=== PATIENT | female | born 1950 | race African-American/Black ===

== ENCOUNTER 2018-01-21 10:21 | Outpatient (CLI) | payer MEDICARE | END 2018-01-21 10:22 | disposition home or self-care (01) | LOC: BICMAMMO 10:21 | PROVIDERS: ATTEND Family Medicine | DX: Z12.31 Encounter for screening mammogram for malignant neoplasm of breast (principal); M85.80 Other specified disorders of bone density and structure, unspecified site | CPT/HCPCS: 77063; 77067; 77080 ==

== ENCOUNTER 2018-04-03 12:11 | Emergency (ER) | payer MEDICARE | END 2018-04-03 13:50 | disposition home or self-care (01) | LOC: ERS 12:11 | DX: M25.561 Pain in right knee (principal); M25.562 Pain in left knee; E78.5 Hyperlipidemia, unspecified; I10 Essential (primary) hypertension; F32.9 Major depressive disorder, single episode, unspecified; F17.290 Nicotine dependence, other tobacco product, uncomplicated; Z79.899 Other long term (current) drug therapy | CPT/HCPCS: 99283 ==

== ENCOUNTER 2019-04-20 12:53 | Observation (INO) | payer MEDICARE ==
[2019-04-20 13:21] LABS: Hemoglobin 11.2 g/dL (12.0-16.0); Mean Corpuscular HGB CONC 32.5 g/dL (32.0-36.0); Mean Corpuscular Hemoglobin 29.9 pg (27.0-31.0); Platelet Count 284 thou/uL (130-400); RBC Distribution Width 12.4 % (11.5-14.5); Red Blood Cell (RBC) Count 3.73 mill/uL (4.20-5.40); White Blood Cell (WBC) Count 6.5 thou/uL (4.8-10.8)
[2019-04-20 13:41] LABS: Eosinophils 1 % (0-10); Lymphocytes 84 % (21-51); MDiff Complete? YES; Monocytes 2 % (0-10); Neutrophil 13 % (42-75); Platelet Morphology Comment Appears Adequate
[2019-04-20 13:47] LABS: ALT (SGPT) 29 U/L (8-55); AST (SGOT) 28 U/L (5-34); Albumin 4.3 g/dL (3.4-4.8); Alkaline Phosphatase 100 U/L (40-150); Anion Gap 12 mmol/L (10-20); BUN (Urea Nitrogen) 10 mg/dL (9.8-20.1); Bilirubin, Total 0.7 mg/dL (0.2-1.2); CK (CPK) 371 U/L (29-168); Calc. Creatinine Clearance 0 mL/min (70-130); Calcium 9.2 mg/dL (7.8-10.44); Carbon Dioxide 26 mmol/L (23-31); Chloride 104 mmol/L (98-107); Estimated GFR-MDRD 61; Globulin 2.4 g/dL (2.4-3.5); Glucose 93 mg/dL (80-115); Potassium 3.6 mmol/L (3.5-5.1); Protein, Total 6.7 g/dL (6.0-8.3); Sodium 138 mmol/L (136-145)
[2019-04-20] MEDS ORDERED: Nitroglycerin 2% Ointment 1 INCH/1 GM Packet ONE (14:58)
[2019-04-20] MEDS ORDERED: Aspirin Chewable 81 MG TAB ONE (14:58)
[2019-04-20] MEDS ORDERED: Nitroglycerin 0.4 MG TAB 1 EACH ONE (15:01)
--- NOTE | 2019-04-20 15:14 | RAD ---
CHEST 1 VIEW: Date: 04/20/19 HISTORY: Chest pain. COMPARISON: Radiograph dated 01/15/17. FINDINGS: Lungs are clear. No pneumothorax. No effusion. Mild dextroscoliosis upper thoracic spine. Cardiac silhouette and mediastinal contours are within normal limits. IMPRESSION: No acute intrathoracic abnormality. POS: CET
[2019-04-20 17:34] LABS: Troponin I Less than 0.010 ng/mL (< 0.028)
[2019-04-20] MEDS ORDERED: Ondansetron ODT 4 MG TAB PO PRN (18:02)
[2019-04-20] MEDS ORDERED: Senokot S 8.6-50 MG TAB PO PRN (18:02)
[2019-04-20] MEDS ORDERED: Ondansetron PF 4 MG/2 ML Vial IVP PRN (18:02)
[2019-04-20] MEDS ORDERED: Acetaminophen 325 MG TAB PO PRN (18:02)
[2019-04-20] MEDS ORDERED: Acetaminophen 650 MG Suppository PR PRN (18:02)
[2019-04-20] MEDS ORDERED: Acetaminophen/Codeine 30-300mg Tablet PO PRN (18:10)
[2019-04-20] MEDS ORDERED: Nitroglycerin 0.4 MG TAB (25 Tab Bottle) SL PRN (18:12)
[2019-04-20 18:53] VITALS: BMI 34.9
--- NOTE | 2019-04-20 19:50 | HP ---
PRIMARY CARE PHYSICIAN: Dr. Mikael Patel. CHIEF COMPLAINT: Chest pain. HISTORY OF PRESENT ILLNESS: Ms. Bruce is a pleasant 69-year-old woman, who looks younger than her stated age, presenting with complaints of severe chest pain that came on suddenly while parked at a gas station. The patient states the pain was 10/10 in severity, substernal, and radiating up both sides of her neck and to her left shoulder. The patient states the pain was constant for approximately 1 hour, and once given a nitroglycerin on arrival, the pain subsided to 2/10. 15 minutes later, she was given a second dose of Nitrostat and her pain fully subsided. She was also given 325 mg of aspirin. The patient reports having similar pain at least once a week for several weeks. She states her primary care physician who saw her recently advised her to go to the emergency department if this type of pain occurred again. For that reason, the patient decided to seek medical attention. She states the pain tends to happen at any time of day and does not seem to be associated with activity as it can occur while at rest or during activity. She denies any associated nausea or vomiting. No associated shortness of breath. Has not had any recent fevers. No cough. Denies any lightheadedness or dizziness. The patient reports having a catheterization more than 10 years ago. She also follows with Dr. Gambino and states she has had cardiac workup including a stress test and possibly an echo less than one year ago. She does not recall the exact date. REVIEW OF SYSTEMS: Apart from what is mentioned above in HPI, the patient denies having any changes with her appetite. No nausea or vomiting. No abdominal pain or cramping. Reports having regular bowel movements. Denies having any urinary symptoms. No trauma to her chest. No lower leg swelling or edema. No recent long car rides or flights. PAST MEDICAL HISTORY: 1. Hypertension. 2. Hyperlipidemia. 3. History of slipped disk. 4. Depression. 5. Anxiety. PAST SURGICAL HISTORY: Previous heart catheterization greater than 10 years ago. SOCIAL HISTORY: Previously smoked cigarettes. Denies any current tobacco use, alcohol consumption, or illicit drug use. ALLERGIES: PROZAC. CURRENT MEDICATIONS: 1. Amlodipine. 2. Atorvastatin. 3. Lexapro. 4. Baclofen. 5. Nortriptyline. 6. Tylenol No. 3. 7. Nitrostat. PHYSICAL EXAMINATION: GENERAL: The patient appears well developed, well nourished, and is in no acute distress. Currently pain is 0/10. VITAL SIGNS: Blood pressure 128/73, pulse 79, respirations 13, O2 sat 99% on room air. HEENT: Normocephalic and atraumatic. Pupils are equal, round, reactive to light. Sclerae without icterus. Oropharynx is clear. NECK: Supple. LUNGS: Clear to auscultation bilaterally without any wheezes, rales, or rhonchi. CARDIAC: Regular rate and rhythm. No chest wall tenderness. ABDOMEN: Soft, nontender, nondistended. Normoactive bowel sounds present. No renal angle tenderness. No guarding or rigidity. EXTREMITIES: No lower leg swelling or edema. NEUROLOGIC: Alert and oriented x3. SKIN: Without rash or jaundice. LABORATORY DATA: White blood count 6.5, hemoglobin 11.2, hematocrit 34.3, platelets 284. Sodium 138, potassium 3.6, BUN 10, creatinine 1.08, GFR 61, glucose 93. LFTs are normal. CK 371. Alkaline phosphatase 100. Troponin negative x1. BNP less than 10. Albumin 4.3. Chest x-ray, no acute intrathoracic abnormality. EKG showed no ST changes or T-wave abnormalities. IMPRESSION AND PLAN: Ms. Bruce is a very pleasant 69-year-old woman with a past medical history of hypertension and hyperlipidemia, who has been referred for management of the followin. Acute coronary syndrome rule out. The patient presents with severe 10/10 chest pain, lasting approximately 1 hour and responsive to Nitrostat. Reports having frequent chest pain for the last several weeks, occurring at least one time per week. Last heart catheterization was greater than 10 years ago, but states she had recent cardiac investigations including a stress test and echo less than one year ago. We will obtain these records from Dr. Gambino' office and if she has had these investigations less than a year ago, unlikely to have them repeated again, however, will need to be seen by Cardiology for concerns regarding unstable angina. We will keep her n.p.o. at midnight. At present, the patient remains chest pain free. We will continue to trend troponins. 2. Hypertension. We will resume home medications once verified. Continue to monitor blood pressure. 3. Hyperlipidemia. We will resume statin once verified. We will check lipid panel with morning labs. 4. Gastrointestinal prophylaxis. 5. Deep venous thrombosis prophylaxis with mechanical SCDs. The patient is ambulatory. 6. Code status, full. Her surrogate decision maker is Cherri Bruce, her son. The patient's case discussed with attending, who agrees with plan of care as described above. Job ID: [id number] MTDD
[2019-04-20 20:30] LABS: Troponin I Less than 0.010 ng/mL (< 0.028)
[2019-04-20] MEDS: Famotidine/PF 20 mg/2ml Vial SLOW IVP SCH (20:44)
[2019-04-20] MEDS ORDERED: Amlodipine 10 MG TAB PO SCH (21:00)
[2019-04-20] MEDS ORDERED: Atorvastatin Calcium 40 MG TAB PO SCH (21:00)
[2019-04-20] MEDS ORDERED: Escitalopram Oxalate 20 mg Tablet PO SCH (21:00)
[2019-04-20] MEDS ORDERED: Diazepam 2 MG TAB PO PRN (21:48)
[2019-04-21 04:54] LABS: Anion Gap 12 mmol/L (10-20); BUN (Urea Nitrogen) 9 mg/dL (9.8-20.1); Calc. Creatinine Clearance 75 mL/min (70-130); Calcium 9.4 mg/dL (7.8-10.44); Carbon Dioxide 25 mmol/L (23-31); Cardiac Risk 3.8 (Less than 4.5); Chloride 105 mmol/L (98-107); Cholesterol 157 mg/dl (< 200 Desired); Estimated GFR-MDRD 65; Glucose 108 mg/dL (80-115); HDL Cholesterol 41 mg/dL (>60 Neg Risk); LDL Cholesterol, Calculated 90 mg/dL; Potassium 3.5 mmol/L (3.5-5.1); Sodium 138 mmol/L (136-145); Triglycerides 129 mg/dL (Less than 150)
[2019-04-21 05:09] LABS: Eosinophils 3 % (0-10); Hemoglobin 10.9 g/dL (12.0-16.0); Lymphocytes 57 % (21-51); MDiff Complete? YES; Mean Corpuscular Hemoglobin 30.3 pg (27.0-31.0); Mean Platelet Volume 7.1 fL (7.4-10.4); Monocytes 3 % (0-10); Neutrophil 36 % (42-75); Platelet Count 262 thou/uL (130-400); RBC Distribution Width 12.3 % (11.5-14.5); Reactive Lymphocytes 1 % (0-10); Red Blood Cell (RBC) Count 3.58 mill/uL (4.20-5.40); White Blood Cell (WBC) Count 5.8 thou/uL (4.8-10.8)
[2019-04-21 08:27] VITALS: TEMP 98.6
[2019-04-21] MEDS ORDERED: Nortriptyline HCl 25 MG CAP PO SCH (09:00)
[2019-04-21] MEDS ORDERED: Escitalopram Oxalate 20 mg Tablet PO SCH (09:00)
[2019-04-21] MEDS ORDERED: busPIRone HCl 10 MG TAB PO SCH (09:00)
[2019-04-21] MEDS ORDERED: Amlodipine 10 MG TAB PO SCH (09:00)
[2019-04-21] MEDS ORDERED: Aspirin 325 mg Enteric Coated Tablet PO SCH (09:00)
[2019-04-21] MEDS: Famotidine/PF 20 mg/2ml Vial SLOW IVP SCH (09:04)
[2019-04-21] MEDS ORDERED: Lidocaine 1% (PF) 30 ML VIAL ONE (10:51)
[2019-04-21] MEDS ORDERED: Heparin 10,000 UNITS/1 ML VIAL ONE (11:21)
[2019-04-21] MEDS ORDERED: Verapamil 5 MG/2 ML VIAL ONE (11:21)
[2019-04-21] MEDS ORDERED: Nitroglycerin 100MG/250ML BOT 250 ML ONE (11:21)
[2019-04-21] MEDS ORDERED: Iopamidol 370 76% 100 ML VIAL ONE (11:49)
[2019-04-21] MEDS ORDERED: Nitroglycerin 0.4 MG TAB (25 Tab Bottle) SL PRN (12:07)
[2019-04-21] MEDS ORDERED: Sodium Chloride 0.9% 200 ML IV PRN (12:07)
[2019-04-21] MEDS ORDERED: Acetaminophen/Codeine 30-300mg Tablet PO PRN ×2 (12:07)
--- NOTE | 2019-04-21 12:12 | CON ---
DATE OF CONSULTATION: INDICATION FOR CONSULTATION: A 69-year-old female with chest pain, history of coronary artery disease, hypertension, dyslipidemia, and tobacco abuse. HISTORY OF PRESENT ILLNESS: This is a very pleasant 69-year-old female, who underwent cardiac catheterization in 2006, was found to have mild coronary artery disease with plaque formation in the right coronary artery and in the left circumflex, but no flow-limiting disease was noted. She had a negative stress test last year. She presented again yesterday to the hospital complaining of chest pain, which has actually been ongoing problem for her for several years, but she said recently it has gotten worse. She describes it being chest pressure radiating to the left shoulder and also into the neck area, and not necessarily associated with activity, but not necessarily relieved either by antacids and she was given two nitroglycerin in the emergency room and eventually the pain resolved. Given her risk factors and history of coronary artery disease on presentation, it will most likely be advantageous to proceed with a cardiac catheterization as a definitive tool to evaluate her coronary artery status. I have explained to her the procedure and the risk and we will plan for cardiac catheterization this morning. The risks include bleeding, infection, myocardial infarction, CVA, renal insufficiency, allergic contrast reaction, and the possibility of and we will plan for catheterization as soon as she can be taken to the cardiac laboratory director. Her cardiac enzymes have remained negative. EKG is unremarkable. PAST MEDICAL HISTORY: Please refer to the notes dictated by my nurse practitioner. SOCIAL HISTORY: Please refer to the notes dictated by my nurse practitioner. REVIEW OF SYSTEMS: Please refer to the notes dictated by my nurse practitioner. ALLERGIES: PLEASE REFER TO THE NOTES DICTATED BY MY NURSE PRACTITIONER. MEDICATIONS: Please refer to the notes dictated by my nurse practitioner. PHYSICAL EXAMINATION: GENERAL: Reveals a well-developed, well-nourished, middle-aged female, who is in no acute distress at this time. VITAL SIGNS: Blood pressure is 131/86, heart rate is 88 and regular, and she is afebrile. HEENT: Unremarkable. CHEST: Clear to auscultation. CARDIOVASCULAR: Reveals a regular rate and rhythm. EXTREMITIES: No clubbing, cyanosis, or edema. ABDOMEN: Unremarkable. Pulses are present. NEUROLOGIC: The patient is fully intact with normal strength and normal tone. LABORATORY DATA: Please refer to the notes already dictated. There is no significant abnormalities, but she is somewhat anemic with a hemoglobin of 10.9. IMPRESSION: 1. Coronary artery disease with possible progression. She will be advised to undergo cardiac catheterization. 2. Chest pain, which could either be cardiac or GI in nature. If the cardiac evaluation is unremarkable, would suggest she continue with gastroesophageal evaluation or either continue her H2 blockers. 3. Anemia of uncertain etiology, need to be evaluated. This maybe associated with some of her chest pain. She is having gastric blood loss from ulcerations. Her creatinine is normal at 1.02 and her LDL level is 90. 4. History of tobacco abuse. She will be strongly advised to stop. 5. History of hypertension, this is under good control at this time. 6. Dyslipidemia, appears to be well controlled also at this time with medical management. Job ID: [id number]
[2019-04-21 12:25] VITALS: BP 130/62
--- NOTE | 2019-04-21 14:48 | CON ---
DATE OF CONSULTATION: PRIMARY CARE DOCTOR: Mikael Patel MD PRIMARY EMERGENCY VEHICLE TECHNICIAN: Connie Gambino MD REASON FOR CARDIOLOGY CONSULT: Frequent chest pain. HISTORY OF PRESENT ILLNESS: Ms. Bruce is a 69-year-old female with significant history of mild coronary artery disease with cath in 2006, hypertension, dyslipidemia, GERD, and depression. She has had heaviness like chest pain since 2006. She underwent a cardiac catheterization in 2006 with 25% to 50 % stenosis in left circumflex and mild plaque in the right coronary arteries with EF 60% to 65%. She has had similar chest pain since 2006. She had a stress test in 2007 with no reversible ischemia. She has had similar symptoms at least once a week with movement and resting. Yesterday morning, while she was sitting at gas station, she started having heaviness like pressure at the midsternal area for 1 hour. The pain radiated to the back and to bilateral side of the neck and to the left upper arm. She described the pain as 10/10 on the pain scale. She drove herself to the emergency department. After she received first nitro, the patient's pain decreased to the 5/10. After she received the second nitro, her pain went down to 2/10 on the pain scale. At this moment, she denies any chest pain, shortness of breath, dizziness, lightheadedness, or any other cardiac complaints. During the episode, she denied any other cardiac complaints either. She exercises at least 3 times a week with stational bicycling for 30 minutes without any cardiac complaints. She checked her blood pressure at home , her blood pressure has been 110s to 120 over 70s at home. She started smoking every day for 2 to 3 cigarettes. The patient's cardiac catheterization in 2006 shows 25% to 50% stenosis in left circumflex and mild plaque in RCA with EF 60% to 65%. Lexiscan stress test in 2017 shows no reversible ischemia with EF 64%. She had echocardiogram done in 2013 with EF of 60% to 65%, trace mitral valve regurgitation, mild aortic valve sclerosis , and trace tricuspid regurgitation. She had a carotid artery Doppler done in March 2018 with no significant stenosis of bilateral ICA. PAST MEDICAL HISTORY: Hypertension, dyslipidemia, mild CAD in 2006, depression , and GERD. PAST SURGICAL HISTORY: Right arm fracture and cardiac catheterization in 2006. FAMILY HISTORY: There are significant family history of diabetes, hypertension , CVA in her maternal side, but there are no significant coronary artery disease in paternal and maternal side. SOCIAL HISTORY: She is a . She had 3 children. They live well. She smoke electronic smoke with nicotine every day. She has ex-EtOH abuse. She quit 1980s. She denies illicit drug abuse. She drinks one big cup of fountain soda every day. ALLERGIES: SHE IS ALLERGIC TO PROZAC, WHICH MAKE HER REALLY DROWSY. MEDICATIONS: The patient's home medications are; 1. Baclofen 10 mg 3 times a day. 2. Norvasc 10 mg once a day. 3. Lexapro 20 mg at bedtime. 4. Lipitor 40 mg once a day. 5. Tylenol with Codeine No. 3 one tablet every 6 hours as needed. 6. Protonix 40 mg once a day as needed. 7. Buspirone 10 mg twice a day. 8. Pamelor 25 mg once a day. 9. Diazepam 2 mg twice a day as needed. REVIEW OF SYSTEMS: Twelve-point review of systems negative unless otherwise mentioned in the HPI. PHYSICAL EXAMINATION: VITAL SIGNS: Blood pressure 128/62, temperature 97.8, pulse 82 and sinus rhythm , respiratory rate is 14, and O2 saturation 97% with room air. GENERAL: The patient is alert and oriented x4, not in acute distress. HEENT: Head; normocephalic, atraumatic. Eyes; extraocular muscle movement intact. ENT and mouth; oral and nasal mucosa moist without lesion. NECK: Supple. Normal range of motion. No JVD. RESPIRATORY: Clear to auscultate bilaterally. No significant wheezing, rales, or rhonchi noted. CARDIOVASCULAR: Regular rate and rhythm. Normal S1 and S2. There is no S3 or S4. No significant murmur, hives, or thrill noted. 2+ pulses in bilateral upper and lower extremities. No edema in the lower extremities. Carotid pulses are present, but mild bruits noted on the right carotid arteries. ABDOMEN: Soft, nontender. No mass to palpitate. Bowel sounds are present. SKIN: Warm and dry. No lesion, rash, or erythema noticed. MUSCULOSKELETAL: The patient able to move all extremities without any difficulty. The patient denied claudication. NEUROLOGIC: The patient is alert and oriented x4. Nonfocal. PSYCHIATRIC: The patient's mood is appropriate. LABORATORY DATA: WBC 5.8, hemoglobin 10.9, hematocrit 32.9, and platelets 262. Sodium 138, potassium 3.5, BUN 9, creatinine 1.02, calcium 9.4, and magnesium 2.0. AST 28, ALT 29. Creatine kinase 371. Troponin negative x3. BNP is less than 10. TSH is 2.7308. Total cholesterol is 157, triglyceride is 129, HDL 41, and LDL 90. IMAGING DATA: Chest x-ray shows no acute intrathoracic abnormalities. 12-lead EKG at the ER shows sinus rhythm with heart rate [address]-segment change or T-wave inversion. ASSESSMENT AND PLAN: 1. Chest pain. The patient's troponin is negative x3 and the patient's stress test in May 2018 showed no reversible ischemia. However, the patient's cardiac catheterization in 2006 shows 25% to 50% stenosis in left circumflex. The patient had a history of hyperlipidemia, and current smoker. I would like to discuss with Dr. Gambino with the patient's further evaluation and treatment However, most likely the patient is going to undergo cardiac cath today. The patient has been n.p.o. at this moment. 2. Hypertension. The patient's blood pressure is stable with current medication. We would like to continue to monitor. 3. Hyperlipidemia. She is on atorvastatin 20 mg once a day. 4. Depression. Her mental status is stable at this moment with current medication, which is managed by the primary care doctor. 5. Gastroesophageal reflux disease. The patient on the Protonix 40 mg once a day. 6. Current smoker. Smoking cessation education was given to the patient. The patient like to quit smoking. She would like to try nicotine patch or Chantix order. Thank you very much for Cardiology Service to participate in the care of this patient. We will follow along the patient's care team and make further recommendations as appropriate. Job ID: [id number] MTDD
== END 2019-04-21 15:31 | disposition home or self-care (01) ==
LOC: ERS 12:53 → 2SW 16:45
PROVIDERS: ADMIT Internal Medicine; ATTEND Internal Medicine
PROC: 4A023N7 Measurement of Cardiac Sampling and Pressure, Left Heart, Percutaneous Approach (ICD-10-PCS; principal; 2019-04-20)
PROC: B2101ZZ Fluoroscopy of Single Coronary Artery using Low Osmolar Contrast (ICD-10-PCS; 2019-04-20)
DX: R07.2 Precordial pain (principal); I10 Essential (primary) hypertension; E78.5 Hyperlipidemia, unspecified; D64.9 Anemia, unspecified; K21.9 Gastro-esophageal reflux disease without esophagitis; F32.9 Major depressive disorder, single episode, unspecified; F41.9 Anxiety disorder, unspecified; F17.290 Nicotine dependence, other tobacco product, uncomplicated; Z88.8 Allergy status to other drugs, medicaments and biological substances; Z79.899 Other long term (current) drug therapy
CPT/HCPCS: 71045; 80048; 80053; 80061; 82550; 83735; 83880; 84443; 84484 ×2; 85025 ×2; 93005; 93458; 96374; 96376; 97139; 99285; C1769; G0378 ×3; 36415; J1644; J2001; Q9967; S0028

== ENCOUNTER 2019-10-16 12:36 | Outpatient (CLI) | payer MEDICARE ==
--- NOTE | 2019-10-16 13:24 | ULT ---
EXAM: Left lower extremity venous Doppler US HISTORY: left lower extremity pain FINDINGS: Grayscale, color-flow, Doppler evaluation, spectral analysis of the left lower extremity venous struc tures is performed with 2-D imaging. The left common femoral, superficial femoral, popliteal, posterior tibial, proximal greater saphenous and profunda femoral veins are imaged. There is normal luminal compressibility, flow, and augmentation the visualized deep venous structures of the left lower extremity. IMPRESSION: No evidence of a deep vein thrombosis in the left lower extremity.
== END 2019-10-16 12:37 | disposition home or self-care (01) ==
LOC: ULT 12:36
PROVIDERS: ATTEND Family Medicine
DX: M79.605 Pain in left leg (principal)

== ENCOUNTER 2020-09-14 08:19 | Outpatient (CLI) | payer MEDICARE ==
--- NOTE | 2020-09-14 09:13 | MMO ---
Bilateral MAMMO Bilat Screen [id number]. CLINICAL HISTORY: Patient is 70 years old and is seen for screening. The patient has no family history of breast cancer. The patient has no personal history of cancer. VIEWS: The views performed were: bilateral craniocaudal with tomosynthesis and bilateral mediolateral oblique with tomosynthesis. FILMS COMPARED: The present examination has been compared to prior imaging studies performed at [facility] on 01/21/2018, and at [facility] on 09/19/2010, 06/14/2014 and 08/08/2015. This study has been interpreted with the assistance of computer-aided detection. MAMMOGRAM FINDINGS: There are scattered fibroglandular densities. There are no suspicious masses, calcifications or areas of architectural distortion. Nodularity is stable. There are no suspicious masses, suspicious calcifications, or new areas of architectural distortion. IMPRESSION: THERE IS NO MAMMOGRAPHIC EVIDENCE OF MALIGNANCY. A ROUTINE FOLLOW-UP MAMMOGRAM IN 1 YEAR IS RECOMMENDED. THE RESULTS OF THIS EXAM WERE SENT TO THE PATIENT. ACR BI-RADS Category 2 - Benign finding MAMMOGRAPHY NOTE: 1. A negative mammogram report should not delay a biopsy if a dominant of clinically suspicious mass is present. 2. Approximately 10% to 15% of breast cancers are not detected by mammography. 3. Adenosis and dense breasts may obscure an underlying neoplasm. Reported by: ARTEMIO NOLASCO MD Electonically Signed: [id number]
--- NOTE | 2020-09-14 10:08 | BD ---
EXAM: DEXA bone density examination HISTORY: 70-year-old postmenopausal female for screening COMPARISON: 02/09/2016 FINDINGS: L1--bone mineral density 0.872 g/sq cm; T score -1.1 L2--bone mineral density 1.056 g/sq cm; T score 0.3 L3--bone mineral density 1.112 g/sq cm; T score 0.3 L4--bone mineral density 1.307 g/sq cm; T score 2 Total L1-L4--bone mineral density 1.094 g/sq cm; T score 0.4 Left femoral neck--bone mineral density0.703; T score -1.3 Total proximal left femur--bone mineral density 0.876; T score -0.5 IMPRESSION: Osteopenia. This patient has a 10 year WHO fracture risk of a major osteoporotic fracture of 4.1% and of a hip fracture of 0.9%.
== END 2020-09-14 08:20 | disposition home or self-care (01) ==
LOC: BICMAMMO 08:19
PROVIDERS: ATTEND Family Medicine
DX: Z12.31 Encounter for screening mammogram for malignant neoplasm of breast (principal); Z13.820 Encounter for screening for osteoporosis; M85.89 Other specified disorders of bone density and structure, multiple sites; Z78.0 Asymptomatic menopausal state
CPT/HCPCS: 77063; 77067; 77080

== ENCOUNTER 2020-10-02 14:47 | Emergency (ER) | payer MEDICARE, OTHER ==
[2020-10-02] MEDS ORDERED: Ketorolac Tromethamine 30 MG/ML VIAL ONE (15:54)
[2020-10-02 16:08] LABS: #Basophils 0.1 thou/uL (0.0-0.2); #Eosinphils 0.1 thou/uL (0.0-0.7); #Lymphocytes 2.9 thou/uL (1.20-3.40); #Monocytes 0.5 thou/uL (0.11-0.59); #Neutrophils 2.5 thou/uL (1.40-6.50); %Basophils 1.4 % (0.0-1.0); %Eosinophils 0.9 % (0.0-10.0); %Lymphocytes 47.7 % (21.0-51.0); %Monocytes 8.3 % (0.0-10.0); %Neutrophils 41.7 % (42.0-75.0); Hemoglobin 11.3 g/dL (12.0-16.0); Mean Corpuscular HGB CONC 34.1 g/dL (32.0-36.0); Mean Corpuscular Hemoglobin 31.7 pg (27.0-31.0); Mean Corpuscular Volume 92.9 fL (78.0-98.0); Mean Platelet Volume 7.5 fL (7.4-10.4); Platelet Count 300 thou/uL (130-400); RBC Distribution Width 12.8 % (11.5-14.5); Red Blood Cell (RBC) Count 3.58 mill/uL (4.20-5.40)
[2020-10-02 16:21] LABS: ALT (SGPT) 17 U/L (8-55); AST (SGOT) 16 U/L (5-34); Albumin 3.9 g/dL (3.4-4.8); Alkaline Phosphatase 92 U/L (40-110); Anion Gap 15 mmol/L (10-20); BUN (Urea Nitrogen) 8 mg/dL (9.8-20.1); Bilirubin, Total 0.5 mg/dL (0.2-1.2); Calc. Creatinine Clearance 0 mL/min (70-130); Calcium 8.8 mg/dL (7.8-10.44); Carbon Dioxide 23 mmol/L (23-31); Chloride 108 mmol/L (98-107); Globulin 2.8 g/dL (2.4-3.5); Glucose 132 mg/dL (83-110); Lipase 42 U/L (8-78); Potassium 3.4 mmol/L (3.5-5.1); Protein, Total 6.7 g/dL (6.0-8.3); Sodium 143 mmol/L (136-145)
--- NOTE | 2020-10-02 16:53 | RAD ---
Cervical spine 3 views HISTORY: Neck injury. FINDINGS: Vertebral body heights are maintained. Alignment within normal limits. Bulky osteophytosis is present throughout the vertebral bodies and facets. Cervicothoracic junction i s intact. No fracture or dislocation. IMPRESSION : Prominent osseous degenerative changes. No acute osseous abnormalities are demonstrated.
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
== END 2020-10-02 17:15 | disposition home or self-care (01) ==
LOC: ERS 14:47
DX: M54.2 Cervicalgia (principal); E78.5 Hyperlipidemia, unspecified; E78.00 Pure hypercholesterolemia, unspecified; I10 Essential (primary) hypertension; F17.290 Nicotine dependence, other tobacco product, uncomplicated; Z79.899 Other long term (current) drug therapy; V43.52XA Car driver injured in collision with other type car in traffic accident, initial encounter
CPT/HCPCS: 36415; 71045; 72040; 80053; 83690; 85025; 96374; J1885

== ENCOUNTER 2021-08-02 13:10 | Outpatient (CLI) | payer MEDICARE | END 2021-08-02 13:11 | disposition home or self-care (01) | LOC: BICCT 13:10 | PROVIDERS: ATTEND Neurological Surgery | DX: M48.062 Spinal stenosis, lumbar region with neurogenic claudication (principal); M47.816 Spondylosis without myelopathy or radiculopathy, lumbar region | CPT/HCPCS: 72131 ==

== ENCOUNTER 2021-08-28 15:53 | Outpatient (CLI) | payer MEDICARE ==
[2021-08-28 17:27] LABS: Anion Gap 14 mmol/L (10-20); BUN (Urea Nitrogen) 8 mg/dL (9.8-20.1); Calc. Creatinine Clearance 0 mL/min (70-130); Calcium 9.3 mg/dL (7.8-10.44); Carbon Dioxide 24 mmol/L (23-31); Chloride 108 mmol/L (98-107); Glucose 115 mg/dL (83-110); Potassium 3.8 mmol/L (3.5-5.1); Sodium 142 mmol/L (136-145)
[2021-08-28 17:39] LABS: Hemoglobin 11.3 g/dL (12.0-15.5); Mean Corpuscular HGB CONC 32.8 g/dL (32.0-36.0); Mean Corpuscular Hemoglobin 30.3 pg (27.0-33.0); Mean Corpuscular Volume 92.2 fl (81.6-98.3); Mean Platelet Volume 9.8 fl (7.4-10.4); Platelet Count 310 10x3/uL (150-450); RBC Distribution Width 13.6 % (11.5-14.5); Red Blood Cell (RBC) Count 3.73 10x6/uL (3.90-5.03); White Blood Cell (WBC) Count 6.8 10x3/uL (3.5-10.5)
[2021-08-29 09:14] LABS: SARS-CoV-2 PCR by NAA Not Detected (NotDetected)
== END 2021-08-28 15:54 | disposition home or self-care (01) ==
LOC: LABBT 15:53
PROVIDERS: ATTEND Neurological Surgery
DX: Z01.818 Encounter for other preprocedural examination (principal); M48.061 Spinal stenosis, lumbar region without neurogenic claudication; Z20.822 Contact with and (suspected) exposure to COVID-19
CPT/HCPCS: 80048; 85027; U0003; U0005; 93005; 93010

== ENCOUNTER 2021-08-30 06:32 | Day surgery (SDC) | payer MEDICARE ==
[2021-08-28 13:08] VITALS: BMI 34.3
[2021-08-30] MEDS ORDERED: EPINEPHrine 1 MG/ML AMP ONE (06:45)
[2021-08-30] MEDS ORDERED: Thrombin 5000 UNITS/5 ML VIAL ONE (06:45)
[2021-08-30] MEDS ORDERED: Bupivacaine PF 0.5% 30 ML VIAL ONE (06:45)
[2021-08-30] MEDS ORDERED: Fentanyl 100 MCG/2 ML VIAL ONE ×3 (07:18→10:03)
[2021-08-30] MEDS ORDERED: Dexamethasone 20 MG/5 ML VIAL ONE (08:02)
[2021-08-30] MEDS ORDERED: Lidocaine 1% PF 5 ML VIAL ONE (08:02)
[2021-08-30] MEDS ORDERED: PROPOFOL 200 MG/20 ML VIAL ONE (08:02)
[2021-08-30] MEDS ORDERED: Glycopyrrolate 0.2 MG/ML 5 ML SYRINGE ONE (08:02)
[2021-08-30] MEDS ORDERED: Rocuronium Bromide 10 MG/ML (10ML VIAL) ONE (08:02)
[2021-08-30] MEDS ORDERED: Ondansetron PF 4 MG/2 ML Vial ONE (08:02)
[2021-08-30] MEDS ORDERED: SUGAMMADEX SODIUM 200 MG/2 ML VIAL ONE (09:13)
[2021-08-30] MEDS ORDERED: Albuterol Sulfate HFA (OR ONLY) ONE (09:25)
[2021-08-30] MEDS ORDERED: Albuterol Sulfate 1.25 MG/3 ML NEB ONE (09:35)
[2021-08-30] MEDS ORDERED: HYDROcodone/Acetaminophen 5/325 mg Tablet ONE (11:34)
[2021-08-30] MEDS ORDERED: tiZANidine HCl 4 MG TAB ONE (13:43)
== END 2021-08-30 15:35 | disposition home or self-care (01) ==
LOC: SDC 06:32
PROVIDERS: ATTEND Neurological Surgery
PROC: 01NB0ZZ Release Lumbar Nerve, Open Approach (ICD-10-PCS; principal; 2021-08-30)
DX: M48.062 Spinal stenosis, lumbar region with neurogenic claudication (principal); M51.16 Intervertebral disc disorders with radiculopathy, lumbar region; M47.26 Other spondylosis with radiculopathy, lumbar region; E78.5 Hyperlipidemia, unspecified; G89.29 Other chronic pain; M19.90 Unspecified osteoarthritis, unspecified site; I10 Essential (primary) hypertension; Z79.899 Other long term (current) drug therapy; Z88.8 Allergy status to other drugs, medicaments and biological substances
CPT/HCPCS: 76000; J0171; J0690; J1100; J2405; J2704; J3010; J7620; S0020

== ENCOUNTER 2021-09-15 14:04 | Outpatient (CLI) | payer MEDICARE | END 2021-09-15 14:05 | disposition home or self-care (01) | LOC: BICMAMMO 14:04 | PROVIDERS: ATTEND Family Medicine | DX: Z12.31 Encounter for screening mammogram for malignant neoplasm of breast (principal) | CPT/HCPCS: 77063; 77067 ==

== ENCOUNTER 2022-02-12 08:52 | Outpatient (CLI) | payer MEDICARE | END 2022-02-12 08:53 | disposition home or self-care (01) | LOC: RAD 08:52 | PROVIDERS: ATTEND Neurological Surgery | DX: M47.26 Other spondylosis with radiculopathy, lumbar region (principal); M47.818 Spondylosis without myelopathy or radiculopathy, sacral and sacrococcygeal region; M16.0 Bilateral primary osteoarthritis of hip; D64.9 Anemia, unspecified; I10 Essential (primary) hypertension; R73.09 Other abnormal glucose | CPT/HCPCS: 36415; 72120; 72170; 72220; 80053; 83036; 85025 ==

== ENCOUNTER 2023-05-06 09:26 | Outpatient (CLI) | payer MEDICARE | END 2023-05-06 09:27 | disposition home or self-care (01) | LOC: BICMAMMO 09:26 | PROVIDERS: ATTEND Family Medicine | DX: Z12.31 Encounter for screening mammogram for malignant neoplasm of breast (principal) | CPT/HCPCS: 77063; 77067 ==

== ENCOUNTER 2023-05-24 13:31 | Outpatient (CLI) | payer MEDICARE | END 2023-05-24 13:32 | disposition home or self-care (01) | LOC: CT 13:31 | PROVIDERS: ATTEND Family Medicine | DX: G43.111 Migraine with aura, intractable, with status migrainosus (principal); R47.01 Aphasia | CPT/HCPCS: 70450 ==

== ENCOUNTER 2023-11-04 07:08 | Outpatient (CLI) | payer MEDICARE ==
[2023-11-04] MEDS ORDERED: Iopamidol-370 76% 500 ML MDV (1 ML CHARGE) ONE (11:44)
== END 2023-11-04 07:09 | disposition home or self-care (01) ==
LOC: BICCT 07:08
PROVIDERS: ATTEND Family Medicine
DX: R10.30 Lower abdominal pain, unspecified (principal); K44.9 Diaphragmatic hernia without obstruction or gangrene; K42.9 Umbilical hernia without obstruction or gangrene; K57.30 Diverticulosis of large intestine without perforation or abscess without bleeding; I70.0 Atherosclerosis of aorta; M47.816 Spondylosis without myelopathy or radiculopathy, lumbar region
CPT/HCPCS: 74177; 82565; Q9967

== ENCOUNTER 2023-11-08 11:12 | Inpatient (IN) | payer MEDICARE ==
[2023-11-08] MEDS ORDERED: Iopamidol-370 76% 500 ML MDV (1 ML CHARGE) ONE (11:50)
[2023-11-08] MEDS ORDERED: Ondansetron PF 4 MG/2 ML Vial ONE ×2 (12:06→17:58)
[2023-11-08] MEDS ORDERED: Morphine 4 MG/ML VIAL ONE (12:06)
[2023-11-08 12:15] LABS: ALT (SGPT) 35 U/L (8-55); AST (SGOT) 25 U/L (5-34); Albumin 4.2 g/dL (3.4-4.8); Alkaline Phosphatase 78 U/L (40-110); Anion Gap 14 mmol/L (10-20); BUN (Urea Nitrogen) 10 mg/dL (9.8-20.1); Bilirubin, Total 1.1 mg/dL (0.2-1.2); Calc. Creatinine Clearance 0 mL/min (70-130); Calcium 9.4 mg/dL (7.8-10.44); Carbon Dioxide 26 mmol/L (23-31); Chloride 103 mmol/L (98-107); Estimated GFR 49; Globulin 3.1 g/dL (2.4-3.5); Glucose 122 mg/dL (83-110); Lipase 41 U/L (8-78); Potassium 4.1 mmol/L (3.5-5.1); Protein, Total 7.3 g/dL (5.8-8.1); Sodium 139 mmol/L (136-145)
[2023-11-08 12:35] LABS: #Monocytes 0.7 thou/uL (0.11-0.59); #Neutrophils 12.1 thou/uL (1.40-6.50); %Basophils 0.1 % (0.0-1.0); %Lymphocytes 10.4 % (21.0-51.0); %Monocytes 4.7 % (0.0-10.0); %Neutrophils 84.1 % (42.0-75.0); Hematocrit 34.6 % (36.0-47.0); Hemoglobin 11.4 g/dL (12.0-16.0); Mean Corpuscular HGB CONC 32.9 g/dL (32.0-36.0); Mean Corpuscular Hemoglobin 30.1 pg (27.0-31.0); Mean Corpuscular Volume 91.3 fl (78.0-98.0); Mean Platelet Volume 10.7 fL (7.4-10.4); Platelet Count 240 10x3/uL (130-400); RBC Distribution Width 13.7 % (11.5-14.5); Red Blood Cell (RBC) Count 3.79 mill/uL (4.20-5.40); White Blood Cell (WBC) Count 14.4 10x3/uL (4.8-10.8)
[2023-11-08 12:48] LABS: Magnesium 1.9 mg/dL (1.6-2.6)
[2023-11-08 13:01] LABS: Bacteria/HPF None Seen HPF (None Seen); Bilirubin 2+ (Negative); CAUTI Indications for Culture Pelvic or flank pain; Clarity Clear (Clear); Glucose, Urine (Dipstick) Normal (Negative); Ketone, Urine Negative (Negative); Leukocyte Negative Leu/uL (Negative); Nitrite Negative (Negative); Protein, Urine (Dipstick) 30 mg/dL (Neg-Trace); Specific Gravity, Urine 1.036 (1.002-1.036); Squamous Epithelial 0-3 HPF (0-3); WBC/HPF 0-3 HPF (0-3); pH, Urine 6.5 (5.0-9.0)
[2023-11-08 13:04] LABS: Troponin I Less than 0.010 ng/mL (< 0.028)
[2023-11-08 13:05] LABS: Blood, Urine Negative (Negative); Urine Culture Reflex No No
[2023-11-08] MEDS ORDERED: Sodium Chloride 0.9% 100 ML ONE ×2 (13:18→20:42)
[2023-11-08] MEDS ORDERED: Piperacillin/Tazobactam 4.5 GM VIAL ONE (13:18)
[2023-11-08] MEDS ORDERED: SUCCINYLCHOLINE/SOD CL,ISO/PF 200 MG/10 ML SYRINGE FS ONE (16:17)
[2023-11-08] MEDS ORDERED: PROPOFOL 20 ML ONE ×2 (16:17→19:12)
[2023-11-08] MEDS ORDERED: fentaNYL PF 100 MCG/2 ML SYRINGE ONE ×2 (16:17→20:02)
[2023-11-08] MEDS ORDERED: Lidocaine 2% PF 5 ML VIAL ONE ×2 (16:17→16:29)
[2023-11-08] MEDS ORDERED: Rocuronium Bromide 10 MG/ML (10ML VIAL) ONE (16:17)
[2023-11-08] MEDS ORDERED: EPINEPHrine 1 MG/ML VIAL ONE (16:28)
[2023-11-08] MEDS ORDERED: Bupivacaine PF 0.5% 30 ML VIAL ONE (16:29)
[2023-11-08] MEDS ORDERED: PHENYLEPHRINE-NS 100 MCG/ML 10 ML SYRINGE ONE (17:58)
[2023-11-08] MEDS ORDERED: Dexamethasone 4 mg/ml Vial ONE (17:58)
[2023-11-08] MEDS ORDERED: Ondansetron HCl/PF 4 MG/2 ML Vial IVP PRN (18:12)
[2023-11-08] MEDS ORDERED: Promethazine HCl 25 MG/ML VIAL IM PRN ×2 (18:12→21:21)
[2023-11-08] MEDS ORDERED: HYDROmorphone 2 MG/ML VIAL SLOW IVP PRN (18:12)
[2023-11-08] MEDS ORDERED: HYDROmorphone 0.5 MG/0.5 ML SYRINGE ONE (18:37)
[2023-11-08] MEDS ORDERED: Magnesium 5 GM/10 ML VIAL ONE (18:38)
[2023-11-08] MEDS ORDERED: Ketamine In 0.9 % NaCl 50 MG/5 ML SYRINGE ONE (18:38)
[2023-11-08] MEDS ORDERED: SUGAMMADEX SODIUM 200 MG/2 ML VIAL ONE (19:04)
[2023-11-08] MEDS ORDERED: ePHEDrine Sulfate 50 MG/10 ML VIAL ONE (19:38)
[2023-11-08] MEDS ORDERED: Ondansetron PF 4 MG/2 ML Vial IVP PRN (19:47)
[2023-11-08] MEDS ORDERED: Dextrose 5% in Water 1,000 ML IV PRN (19:47)
[2023-11-08] MEDS ORDERED: hydrALAZINE 20 MG/ML VIAL SLOW IVP PRN (19:47)
[2023-11-08] MEDS ORDERED: Morphine 4 MG/ML VIAL SLOW IVP PRN (19:47)
[2023-11-08] MEDS ORDERED: Morphine 2 MG/ML VIAL SLOW IVP PRN (19:47)
[2023-11-08] MEDS ORDERED: Diazepam 2 MG TAB PO PRN (19:54)
[2023-11-08] MEDS ORDERED: D5 1/2 NS w/20 mEq KCL 1,000 ML ONE (20:22)
[2023-11-08] MEDS: D5 1/2 NS w/20 mEq KCL 1,000 ML IV SCH (20:37)
[2023-11-08] MEDS ORDERED: Piperacillin/Tazobactam 3.375 GM VIAL ONE (20:39)
[2023-11-08] MEDS: Piperacillin/Tazobactam 3.375 GM in Sodium Chloride 0.9% 100 ML IVPB SCH (20:49)
[2023-11-08] MEDS ORDERED: Dexmedetomidine 200 MCG/2 ML VIAL ONE (20:53)
[2023-11-08] MEDS ORDERED: Sterile Water 30 ML ONE (20:53)
[2023-11-08] MEDS ORDERED: fentaNYL 50 mcg/mL 1 mL Vial ONE (21:02)
[2023-11-08] MEDS: Amlodipine 10 MG TAB PO SCH (21:09)
[2023-11-08] MEDS: busPIRone HCl 10 MG TAB PO SCH (21:09)
[2023-11-08] MEDS: Enoxaparin 40 MG (0.4 mL) SYRINGE SC SCH (21:09)
[2023-11-08] MEDS: Acetaminophen 500 MG TAB PO SCH (21:10)
[2023-11-08] MEDS ORDERED: Acetaminophen 500 MG TAB ONE (21:12)
[2023-11-08] MEDS ORDERED: diphenhydrAMINE 50 MG/ML VIAL IVP PRN (21:21)
[2023-11-08] MEDS ORDERED: FENTANYL 500 MCG/10 ML VIAL 2,000 MCG in Sodium Chloride 0.9% 60 ML IV PRN (21:21)
[2023-11-08] MEDS ORDERED: Naloxone HCl 0.4 mg/ml Vial IV PRN (21:21)
[2023-11-08] MEDS ORDERED: diphenhydrAMINE 50 MG/ML VIAL IM PRN (21:21)
[2023-11-08] MEDS ORDERED: diphenhydrAMINE 25 MG CAP PO PRN (21:21)
[2023-11-08] MEDS ORDERED: Communication Order-Pharmacy FS SCH (21:30)
[2023-11-08] MEDS: Escitalopram Oxalate 20 mg Tablet PO SCH (21:36)
[2023-11-08] MEDS ORDERED: Piperacillin/Tazobactam 4.5 GM in Sodium Chloride 0.9% 100 ML IVPB SCH (22:00)
[2023-11-08 22:37] VITALS: BMI 31.7
[2023-11-09] MEDS: Ketorolac Tromethamine 30 MG (1 mL) VIAL IVP SCH (00:36)
[2023-11-09 05:28] LABS: Anion Gap 10 mmol/L (10-20); BUN (Urea Nitrogen) 11 mg/dL (9.8-20.1); Calc. Creatinine Clearance 55 mL/min (70-130); Calcium 7.7 mg/dL (7.8-10.44); Carbon Dioxide 22 mmol/L (23-31); Chloride 110 mmol/L (98-107); Estimated GFR 48; Glucose 206 mg/dL (83-110); Potassium 4.5 mmol/L (3.5-5.1); Sodium 137 mmol/L (136-145)
[2023-11-09 07:26] LABS: Manual Diff?? YES; Mean Corpuscular HGB CONC 31.9 g/dL (32.0-36.0); Mean Corpuscular Hemoglobin 30.6 pg (27.0-31.0); Mean Platelet Volume 10.1 fL (7.4-10.4); Platelet Count 233 10x3/uL (130-400); RBC Distribution Width 14.3 % (11.5-14.5); Red Blood Cell (RBC) Count 2.65 mill/uL (4.20-5.40)
[2023-11-09 07:27] LABS: Hemoglobin 8.1 g/dL (12.0-16.0)
[2023-11-09 07:28] LABS: Delete Auto Diff?? YES; Hematocrit 25.4 % (36.0-47.0); Mean Corpuscular Volume 95.8 fl (78.0-98.0)
[2023-11-09 07:55] LABS: Band 24 % (5-11); Burr Cells SLIGHT = 2-5 cells (100X) (0-1/hpf); Lymphocytes 12 % (21-51); Monocytes 3 % (0-10); Neutrophil 61 % (42-75); Platelet Adequacy Comment Platelets Normal; Polychromasia SLIGHT = 2-3 cells (100X) (0-2/hpf)
[2023-11-09] MEDS: Nortriptyline HCl 25 MG CAP PO SCH (09:27)
[2023-11-09] MEDS: Pantoprazole 40 MG VIAL IVP SCH (09:27)
[2023-11-09] MEDS: Ondansetron PF 4 MG/2 ML Vial IVP PRN (09:37)
[2023-11-09 19:30] LABS: Hematocrit 19.4 % (36.0-47.0); Hemoglobin 6.2 g/dL (12.0-16.0); Manual Diff?? YES; Mean Corpuscular Hemoglobin 29.7 pg (27.0-31.0); Mean Platelet Volume 9.7 fL (7.4-10.4); Platelet Count 231 10x3/uL (130-400); RBC Distribution Width 14.3 % (11.5-14.5); Red Blood Cell (RBC) Count 2.09 mill/uL (4.20-5.40); White Blood Cell (WBC) Count 7.6 10x3/uL (4.8-10.8)
[2023-11-09 19:52] LABS: Delete Auto Diff?? YES; Mean Corpuscular Volume 92.8 fl (78.0-98.0)
[2023-11-09 20:38] LABS: Anisocytosis SLIGHT = 6-15 cells HPF (0-5); Band 34 % (5-11); CellaVision Operator ID LAB.JMM; Elliptocytes SLIGHT = 2-5 cells HPF (0-1); Lymphocytes 12 % (21-51); Monocytes 6 % (0-10); Myelocyte 1 % (0-0); Neutrophil 47 % (42-75); Ovalocytes SLIGHT = 2-5 cells HPF (0-1); Platelet Adequacy Comment Platelets Normal; Polychromasia SLIGHT = 2-3 cells HPF (0-2); Total Cell Count 100
[2023-11-10 06:47] LABS: Anion Gap 9 mmol/L (10-20); BUN (Urea Nitrogen) 13 mg/dL (9.8-20.1); Calc. Creatinine Clearance 53 mL/min (70-130); Calcium 8.2 mg/dL (7.8-10.44); Carbon Dioxide 20 mmol/L (23-31); Chloride 111 mmol/L (98-107); Estimated GFR 46; Glucose 147 mg/dL (83-110); Potassium 4.4 mmol/L (3.5-5.1); Sodium 136 mmol/L (136-145)
[2023-11-10 08:52] LABS: Hematocrit 17.1 % (36.0-47.0); Hemoglobin 8.8 g/dL (12.0-16.0); Manual Diff?? YES; Mean Corpuscular Hemoglobin 47.8 pg (27.0-31.0); Mean Corpuscular Volume 92.9 fl (78.0-98.0); Platelet Count 201 10x3/uL (130-400); RBC Distribution Width 16.3 % (11.5-14.5); Red Blood Cell (RBC) Count 1.84 mill/uL (4.20-5.40); White Blood Cell (WBC) Count 7.4 10x3/uL (4.8-10.8)
[2023-11-10 09:06] LABS: Delete Auto Diff?? YES; Mean Corpuscular HGB CONC 51.5 g/dL (32.0-36.0)
[2023-11-10 13:29] LABS: #Monocytes 0.5 thou/uL (0.11-0.59); #Neutrophils 6.1 thou/uL (1.40-6.50); %Basophils 0.1 % (0.0-1.0); %Lymphocytes 20.3 % (21.0-51.0); %Monocytes 5.7 % (0.0-10.0); %Neutrophils 73.7 % (42.0-75.0)
[2023-11-10 18:10] LABS: #Monocytes 0.6 thou/uL (0.11-0.59); #Neutrophils 6.6 thou/uL (1.40-6.50); %Basophils 0.1 % (0.0-1.0); %Lymphocytes 17.6 % (21.0-51.0); %Monocytes 6.6 % (0.0-10.0); %Neutrophils 75.5 % (42.0-75.0); Hematocrit 23.4 % (36.0-47.0); Mean Corpuscular HGB CONC 34.2 g/dL (32.0-36.0); Mean Corpuscular Hemoglobin 29.6 pg (27.0-31.0); Mean Platelet Volume 9.4 fL (7.4-10.4); Platelet Count 198 10x3/uL (130-400); RBC Distribution Width 16.5 % (11.5-14.5); White Blood Cell (WBC) Count 8.7 10x3/uL (4.8-10.8)
[2023-11-10 18:54] LABS: Mean Corpuscular Volume 86.7 fl (78.0-98.0)
[2023-11-11 05:32] LABS: Anion Gap 10 mmol/L (10-20); BUN (Urea Nitrogen) 6 mg/dL (9.8-20.1); Calc. Creatinine Clearance 68 mL/min (70-130); Calcium 8.6 mg/dL (7.8-10.44); Carbon Dioxide 24 mmol/L (23-31); Chloride 110 mmol/L (98-107); Estimated GFR 62; Glucose 124 mg/dL (83-110); Potassium 4.5 mmol/L (3.5-5.1); Sodium 139 mmol/L (136-145)
[2023-11-11 11:53] LABS: #Monocytes 0.5 thou/uL (0.11-0.59); #Neutrophils 6.3 thou/uL (1.40-6.50); %Basophils 0.2 % (0.0-1.0); %Eosinophils 0.2 % (0.0-10.0); %Lymphocytes 22.4 % (21.0-51.0); %Monocytes 5.9 % (0.0-10.0); Hematocrit 25.1 % (36.0-47.0); Hemoglobin 8.3 g/dL (12.0-16.0); Mean Corpuscular HGB CONC 33.1 g/dL (32.0-36.0); Mean Corpuscular Hemoglobin 29.1 pg (27.0-31.0); Mean Corpuscular Volume 88.1 fl (78.0-98.0); Mean Platelet Volume 9.1 fL (7.4-10.4); Platelet Count 245 10x3/uL (130-400); Red Blood Cell (RBC) Count 2.85 mill/uL (4.20-5.40); White Blood Cell (WBC) Count 8.9 10x3/uL (4.8-10.8)
[2023-11-11] MEDS ORDERED: D5 1/2 NS w/20 mEq KCL 1,000 ML IV SCH (16:15)
[2023-11-11] MEDS: D5 1/2 NS w/20 mEq KCL 1,000 ML IV SCH (18:08)
[2023-11-11] MEDS: Enoxaparin 40 MG (0.4 mL) SYRINGE SC SCH (21:01)
[2023-11-12 06:04] LABS: #Eosinphils 0.1 thou/uL (0.0-0.7); #Monocytes 0.6 thou/uL (0.11-0.59); #Neutrophils 6.4 thou/uL (1.40-6.50); %Basophils 0.4 % (0.0-1.0); %Eosinophils 0.5 % (0.0-10.0); %Lymphocytes 23.5 % (21.0-51.0); %Monocytes 6.5 % (0.0-10.0); %Neutrophils 68.6 % (42.0-75.0); Hematocrit 25.9 % (36.0-47.0); Hemoglobin 8.5 g/dL (12.0-16.0); Mean Corpuscular HGB CONC 32.8 g/dL (32.0-36.0); Mean Corpuscular Hemoglobin 28.7 pg (27.0-31.0); Mean Corpuscular Volume 87.5 fl (78.0-98.0); Platelet Count 255 10x3/uL (130-400); RBC Distribution Width 15.3 % (11.5-14.5); Red Blood Cell (RBC) Count 2.96 mill/uL (4.20-5.40); White Blood Cell (WBC) Count 9.4 10x3/uL (4.8-10.8)
[2023-11-12 06:37] LABS: ALT (SGPT) 20 U/L (8-55); AST (SGOT) 23 U/L (5-34); Albumin 3.3 g/dL (3.4-4.8); Alkaline Phosphatase 84 U/L (40-110); Anion Gap 10 mmol/L (10-20); BUN (Urea Nitrogen) 7 mg/dL (9.8-20.1); Bilirubin, Total 1.2 mg/dL (0.2-1.2); Calc. Creatinine Clearance 68 mL/min (70-130); Calcium 9.1 mg/dL (7.8-10.44); Carbon Dioxide 24 mmol/L (23-31); Chloride 106 mmol/L (98-107); Estimated GFR 62; Glucose 101 mg/dL (83-110); Potassium 4.3 mmol/L (3.5-5.1); Protein, Total 6.3 g/dL (5.8-8.1); Sodium 136 mmol/L (136-145)
[2023-11-13] MEDS ORDERED: Acetaminophen/Codeine 30-300mg Tablet PO PRN (11:04)
[2023-11-13] MEDS ORDERED: fentaNYL 50 mcg/mL 1 mL Vial SLOW IVP PRN (11:04)
[2023-11-13] MEDS: Acetaminophen/Codeine 30-300mg Tablet PO PRN ×2 (15:34→20:24)
[2023-11-13] MEDS: Baclofen 10 MG TAB PO SCH (20:21)
[2023-11-14] MEDS ORDERED: Morphine 2 MG/ML VIAL SLOW IVP PRN (04:53)
[2023-11-14] MEDS: ETODOLAC 300 MG PO SCH (13:23)
[2023-11-14] MEDS: Acetaminophen/Codeine 30-300mg Tablet PO PRN (13:30)
[2023-11-14] MEDS: Atorvastatin Calcium 40 MG TAB PO SCH (20:53)
[2023-11-15 11:54] VITALS: BP 118/74; TEMP 98.4
== END 2023-11-15 13:52 | DRG 329 ==
LOC: ERS 11:12 → SDC 15:11 → SURG A 19:47
PROVIDERS: ADMIT Specialist; ATTEND Specialist
PROC: 3E0M05Z Introduction of Adhesion Barrier into Peritoneal Cavity, Open Approach (ICD-10-PCS; principal; 2023-11-08)
PROC: 0D1B0Z4 Bypass Ileum to Cutaneous, Open Approach (ICD-10-PCS; 2023-11-08)
PROC: 0DBM0ZZ Excision of Descending Colon, Open Approach (ICD-10-PCS; 2023-11-08)
PROC: 0DBN0ZZ Excision of Sigmoid Colon, Open Approach (ICD-10-PCS; 2023-11-08)
PROC: 05H633Z Insertion of Infusion Device into Left Subclavian Vein, Percutaneous Approach (ICD-10-PCS; 2023-11-08)
PROC: 3E033XZ Introduction of Vasopressor into Peripheral Vein, Percutaneous Approach (ICD-10-PCS; 2023-11-08)
PROC: 30233N1 Transfusion of Nonautologous Red Blood Cells into Peripheral Vein, Percutaneous Approach (ICD-10-PCS; 2023-11-09)
DX: K57.20 Diverticulitis of large intestine with perforation and abscess without bleeding (principal); K65.9 Peritonitis, unspecified; K44.9 Diaphragmatic hernia without obstruction or gangrene; K66.0 Peritoneal adhesions (postprocedural) (postinfection); E66.01 Morbid (severe) obesity due to excess calories; Z79.899 Other long term (current) drug therapy; Z98.890 Other specified postprocedural states; Z88.8 Allergy status to other drugs, medicaments and biological substances; Z98.51 Tubal ligation status; Z68.31 Body mass index [BMI] 31.0-31.9, adult
CPT/HCPCS: 36415; 36416; 36430; 51701; 71045; 74177; 80048; 80053; 81001; 83690; 83735; 84484; 85025; 86850; 86900; 86901; 86921; 88307; 93005; 96365; 96375; 97139; A4314; C1713; C1751; C1776; C9113; J0171; J0665; J1100; J1170; J1650; J1885; J2001; J2270; J2405; J2543; J2704; J3010; J3475; J3480; J3490; P9016; Q9967

== ENCOUNTER 2023-11-19 12:00 | Inpatient (IN) | payer MEDICARE ==
[2023-11-19] MEDS ORDERED: Morphine 4 MG/ML VIAL ONE ×2 (13:05→16:59)
[2023-11-19] MEDS ORDERED: Ondansetron PF 4 MG/2 ML Vial ONE (13:05)
[2023-11-19 13:33] LABS: #Basophils 0.1 thou/uL (0.0-0.2); #Monocytes 1.4 thou/uL (0.11-0.59); #Neutrophils 20.8 thou/uL (1.40-6.50); %Basophils 0.2 % (0.0-1.0); %Lymphocytes 8.3 % (21.0-51.0); %Monocytes 5.5 % (0.0-10.0); %Neutrophils 85.1 % (42.0-75.0); Hematocrit 30.3 % (36.0-47.0); Hemoglobin 10.1 g/dL (12.0-16.0); Mean Corpuscular HGB CONC 33.3 g/dL (32.0-36.0); Mean Corpuscular Volume 87.1 fl (78.0-98.0); Mean Platelet Volume 9.5 fL (7.4-10.4); Platelet Count 678 10x3/uL (130-400); RBC Distribution Width 14.4 % (11.5-14.5); Red Blood Cell (RBC) Count 3.48 mill/uL (4.20-5.40); White Blood Cell (WBC) Count 24.5 10x3/uL (4.8-10.8)
[2023-11-19 13:46] LABS: INR-International Normal Ratio 1.1; PTT 29.2 sec (22.9-36.1); Prothrombin Time 14.3 sec (12.0-14.7)
[2023-11-19 13:49] LABS: ALT (SGPT) 32 U/L (8-55); AST (SGOT) 39 U/L (5-34); Albumin 3.9 g/dL (3.4-4.8); Alkaline Phosphatase 293 U/L (40-110); Anion Gap 19 mmol/L (10-20); BUN (Urea Nitrogen) 60 mg/dL (9.8-20.1); Bilirubin, Total 1.3 mg/dL (0.2-1.2); Calc. Creatinine Clearance 0 mL/min (70-130); Calcium 10.1 mg/dL (7.8-10.44); Carbon Dioxide 20 mmol/L (23-31); Chloride 98 mmol/L (98-107); Estimated GFR 19; Globulin 4.8 g/dL (2.4-3.5); Glucose 109 mg/dL (83-110); Potassium 4.7 mmol/L (3.5-5.1); Protein, Total 8.7 g/dL (5.8-8.1); Sodium 132 mmol/L (136-145)
[2023-11-19 13:54] LABS: Troponin I Less than 0.010 ng/mL (< 0.028)
[2023-11-19] MEDS ORDERED: Piperacillin/Tazobactam 4.5 GM VIAL ONE (14:36)
[2023-11-19] MEDS ORDERED: Sodium Chloride 0.9% 100 ML ONE (14:36)
[2023-11-19] MEDS ORDERED: Ondansetron ODT 4 MG TAB PO PRN (16:15)
[2023-11-19] MEDS: Morphine 2 MG/ML VIAL SLOW IVP PRN (17:34)
[2023-11-19 20:06] VITALS: BMI 28.1
[2023-11-19] MEDS: Piperacillin/Tazobactam 3.375 GM in Sodium Chloride 0.9% 100 ML IVPB SCH ×2 (20:10→21:07)
[2023-11-19] MEDS: cefTRIAXone\\ROCEPHIN 1 GM in Sodium Chloride 0.9% 100 ML IVPB SCH (20:28)
[2023-11-19] MEDS: HYDROcodone/Acetaminophen 5/325 mg Tablet PO PRN (20:29)
[2023-11-20] MEDS: Lactated Ringer's 1,000 ML IV SCH (00:45)
[2023-11-20 05:01] LABS: ALT (SGPT) 25 U/L (8-55); AST (SGOT) 29 U/L (5-34); Albumin 3.5 g/dL (3.4-4.8); Alkaline Phosphatase 245 U/L (40-110); Anion Gap 16 mmol/L (10-20); BUN (Urea Nitrogen) 46 mg/dL (9.8-20.1); Bilirubin, Total 1.1 mg/dL (0.2-1.2); Calc. Creatinine Clearance 36 mL/min (70-130); Calcium 9.5 mg/dL (7.8-10.44); Carbon Dioxide 17 mmol/L (23-31); Chloride 106 mmol/L (98-107); Estimated GFR 34; Glucose 116 mg/dL (83-110); Potassium 4.4 mmol/L (3.5-5.1); Protein, Total 7.5 g/dL (5.8-8.1); Sodium 135 mmol/L (136-145)
[2023-11-20 05:37] LABS: #Monocytes 1.2 thou/uL (0.11-0.59); #Neutrophils 18.3 thou/uL (1.40-6.50); %Basophils 0.2 % (0.0-1.0); %Lymphocytes 7.5 % (21.0-51.0); %Monocytes 5.6 % (0.0-10.0); Hemoglobin 9.1 g/dL (12.0-16.0); Mean Corpuscular HGB CONC 32.5 g/dL (32.0-36.0); Mean Corpuscular Hemoglobin 29.4 pg (27.0-31.0); RBC Distribution Width 14.6 % (11.5-14.5); White Blood Cell (WBC) Count 21.3 10x3/uL (4.8-10.8)
[2023-11-20 05:40] LABS: Mean Corpuscular Volume 90.3 fl (78.0-98.0)
[2023-11-20 05:41] LABS: Platelet Count 354 10x3/uL (130-400)
[2023-11-20 12:06] LABS: Bacteria/HPF None Seen HPF (None Seen); Bilirubin Negative (Negative); Blood, Urine Trace (Negative); CAUTI Indications for Culture Dysuria,urgency,freq; Clarity Extra Turbid (Clear); Glucose, Urine (Dipstick) Normal (Negative); Ketone, Urine Negative (Negative); Leukocyte Negative Leu/uL (Negative); Nitrite Negative (Negative); Protein, Urine (Dipstick) 50 mg/dL (Neg-Trace); RBC/HPF 0-3 HPF (0-3); Specific Gravity, Urine 1.024 (1.002-1.036); Squamous Epithelial None Seen HPF (0-3); Urobilinogen Normal mg/dL (Less than 2); WBC/HPF 0-3 HPF (0-3); pH, Urine 5.5 (5.0-9.0)
[2023-11-20] MEDS: Morphine 4 MG/ML VIAL SLOW IVP PRN ×2 (12:13→22:37)
[2023-11-20 12:18] LABS: Urine Culture Reflex No No
[2023-11-20] MEDS ORDERED: Lidocaine 1% PF 5 ML VIAL ONE ×2 (13:59)
[2023-11-20] MEDS ORDERED: Sodium Bicarbonate 2.5 MEQ/5 ML SDV ONE (14:00)
[2023-11-20] MEDS: Piperacillin/Tazobactam 3.375 GM in Sodium Chloride 0.9% 100 ML IVPB SCH (17:11)
[2023-11-20] MEDS: Lorazepam 2 MG/ML VIAL SLOW IVP SCH (20:19)
[2023-11-21 05:14] LABS: ALT (SGPT) 18 U/L (8-55); AST (SGOT) 26 U/L (5-34); Albumin 3.1 g/dL (3.4-4.8); Alkaline Phosphatase 232 U/L (40-110); Anion Gap 14 mmol/L (10-20); BUN (Urea Nitrogen) 22 mg/dL (9.8-20.1); Bilirubin, Total 1.3 mg/dL (0.2-1.2); Calc. Creatinine Clearance 63 mL/min (70-130); Calcium 9.5 mg/dL (7.8-10.44); Carbon Dioxide 20 mmol/L (23-31); Chloride 108 mmol/L (98-107); Estimated GFR 65; Globulin 3.7 g/dL (2.4-3.5); Glucose 106 mg/dL (83-110); Potassium 4.2 mmol/L (3.5-5.1); Protein, Total 6.8 g/dL (5.8-8.1); Sodium 138 mmol/L (136-145)
[2023-11-21 05:36] LABS: #Monocytes 1.3 thou/uL (0.11-0.59); #Neutrophils 13.5 thou/uL (1.40-6.50); %Basophils 0.2 % (0.0-1.0); %Eosinophils 0.1 % (0.0-10.0); %Lymphocytes 7.5 % (21.0-51.0); %Monocytes 8.2 % (0.0-10.0); %Neutrophils 83.6 % (42.0-75.0); Hematocrit 28.3 % (36.0-47.0); Mean Corpuscular HGB CONC 31.8 g/dL (32.0-36.0); Mean Corpuscular Hemoglobin 28.8 pg (27.0-31.0); Mean Corpuscular Volume 90.7 fl (78.0-98.0); Mean Platelet Volume 10.6 fL (7.4-10.4); Platelet Count 371 10x3/uL (130-400); RBC Distribution Width 14.9 % (11.5-14.5); Red Blood Cell (RBC) Count 3.12 mill/uL (4.20-5.40); White Blood Cell (WBC) Count 16.2 10x3/uL (4.8-10.8)
[2023-11-21] MEDS: Senokot S 8.6-50 MG TAB PO SCH ×2 (11:45→20:43)
[2023-11-21] MEDS: Ibuprofen 200 MG TAB PO SCH (11:45)
[2023-11-21] MEDS: Polyethylene Glycol 3350 17 GM Packet PO SCH (11:45)
[2023-11-22 05:32] LABS: #Eosinphils 0.1 thou/uL (0.0-0.7); #Monocytes 0.8 thou/uL (0.11-0.59); #Neutrophils 11.4 thou/uL (1.40-6.50); %Basophils 0.1 % (0.0-1.0); %Eosinophils 0.4 % (0.0-10.0); %Lymphocytes 8.1 % (21.0-51.0); %Monocytes 6.1 % (0.0-10.0); %Neutrophils 84.9 % (42.0-75.0); Hemoglobin 8.5 g/dL (12.0-16.0); Mean Corpuscular HGB CONC 32.7 g/dL (32.0-36.0); Mean Corpuscular Volume 91.9 fl (78.0-98.0); Mean Platelet Volume 9.2 fL (7.4-10.4); Platelet Count 572 10x3/uL (130-400); RBC Distribution Width 14.5 % (11.5-14.5); Red Blood Cell (RBC) Count 2.83 mill/uL (4.20-5.40); White Blood Cell (WBC) Count 13.4 10x3/uL (4.8-10.8)
[2023-11-22 06:03] LABS: ALT (SGPT) 23 U/L (8-55); AST (SGOT) 34 U/L (5-34); Alkaline Phosphatase 343 U/L (40-110); Anion Gap 13 mmol/L (10-20); BUN (Urea Nitrogen) 16 mg/dL (9.8-20.1); Bilirubin, Total 1.4 mg/dL (0.2-1.2); Calc. Creatinine Clearance 62 mL/min (70-130); Calcium 9.7 mg/dL (7.8-10.44); Carbon Dioxide 23 mmol/L (23-31); Chloride 105 mmol/L (98-107); Estimated GFR 64; Globulin 3.7 g/dL (2.4-3.5); Glucose 99 mg/dL (83-110); Potassium 3.7 mmol/L (3.5-5.1); Protein, Total 6.7 g/dL (5.8-8.1); Sodium 137 mmol/L (136-145)
[2023-11-22] MEDS: Polyethylene Glycol 3350 17 GM Packet PO SCH (09:26)
[2023-11-22] MEDS: Baclofen 10 MG TAB PO SCH (14:41)
[2023-11-22] MEDS: Amlodipine 10 MG TAB PO SCH (22:14)
[2023-11-22] MEDS: Atorvastatin Calcium 40 MG TAB PO SCH (22:14)
[2023-11-22] MEDS: busPIRone HCl 10 MG TAB PO SCH (22:14)
[2023-11-22] MEDS: Acetaminophen/Codeine 30-300mg Tablet PO PRN (22:15)
[2023-11-22] MEDS: Escitalopram Oxalate 20 mg Tablet PO SCH (22:15)
[2023-11-23 07:40] LABS: Hemoglobin 7.5 g/dL (12.0-16.0); Manual Diff?? YES; Mean Corpuscular HGB CONC 32.6 g/dL (32.0-36.0); Mean Corpuscular Hemoglobin 29.3 pg (27.0-31.0); Mean Corpuscular Volume 89.8 fl (78.0-98.0); Platelet Count 583 10x3/uL (130-400); RBC Distribution Width 14.4 % (11.5-14.5); Red Blood Cell (RBC) Count 2.56 mill/uL (4.20-5.40); White Blood Cell (WBC) Count 13.1 10x3/uL (4.8-10.8)
[2023-11-23 07:50] LABS: Delete Auto Diff?? YES
[2023-11-23 08:26] LABS: Anion Gap 11 mmol/L (10-20); BUN (Urea Nitrogen) 15 mg/dL (9.8-20.1); Calc. Creatinine Clearance 64 mL/min (70-130); Carbon Dioxide 25 mmol/L (23-31); Chloride 106 mmol/L (98-107); Estimated GFR 67; Glucose 125 mg/dL (83-110); Potassium 3.7 mmol/L (3.5-5.1); Sodium 138 mmol/L (136-145)
[2023-11-23 08:33] LABS: Anisocytosis SLIGHT = 6-15 cells HPF (0-5); Band 1 % (5-11); CellaVision Operator ID lab.sh2; Hypochromia SLIGHT = 6-15 cells HPF (0-5); Lymphocytes 14 % (21-51); Monocytes 7 % (0-10); Neutrophil 76 % (42-75); Ovalocytes SLIGHT = 2-5 cells HPF (0-1); Platelet Adequacy Comment Platelets Increased; Polychromasia MODERATE = 3-4 cells HPF (0-2); Smudge Cells 12.1 %; Total Cell Count 99
[2023-11-23] MEDS: Nortriptyline HCl 25 MG CAP PO SCH (09:03)
[2023-11-23] MEDS: LevoFLOXacin 750 mg/D5W 750 MG in Premix 1 BAG IVPB SCH (13:55)
[2023-11-23] MEDS: metroNIDAZOLE 500 MG in Premix 1 BAG IVPB SCH (15:29)
[2023-11-23] MEDS: Methocarbamol 1 GM in Sodium Chloride 0.9% 100 ML IVPB PRN (18:50)
[2023-11-23] MEDS: Escitalopram Oxalate 20 mg Tablet PO SCH (20:50)
[2023-11-24] MEDS: Acetaminophen 325 MG TAB PO PRN (03:36)
[2023-11-24 06:00] LABS: Hematocrit 22.8 % (36.0-47.0); Hemoglobin 7.4 g/dL (12.0-16.0); Manual Diff?? YES; Mean Corpuscular HGB CONC 32.5 g/dL (32.0-36.0); Mean Corpuscular Hemoglobin 30.2 pg (27.0-31.0); Mean Platelet Volume 9.3 fL (7.4-10.4); Platelet Count 585 10x3/uL (130-400); RBC Distribution Width 14.3 % (11.5-14.5); Red Blood Cell (RBC) Count 2.45 mill/uL (4.20-5.40)
[2023-11-24 06:05] LABS: Delete Auto Diff?? YES; Mean Corpuscular Volume 93.1 fl (78.0-98.0)
[2023-11-24 06:26] LABS: Band 1 % (5-11); CellaVision Operator ID lab.abc; Lymphocytes 10 % (21-51); Monocytes 8 % (0-10); Neutrophil 81 % (42-75); Platelet Adequacy Comment Platelets Increased; Polychromasia SLIGHT = 2-3 cells HPF (0-2); Smudge Cells 15.8 %; Total Cell Count 101
[2023-11-24 06:38] LABS: Anion Gap 10 mmol/L (10-20); BUN (Urea Nitrogen) 12 mg/dL (9.8-20.1); Calc. Creatinine Clearance 67 mL/min (70-130); Calcium 9.2 mg/dL (7.8-10.44); Carbon Dioxide 25 mmol/L (23-31); Chloride 108 mmol/L (98-107); Estimated GFR 70; Glucose 102 mg/dL (83-110); Potassium 3.8 mmol/L (3.5-5.1); Sodium 139 mmol/L (136-145)
[2023-11-24] MEDS: Ondansetron PF 4 MG/2 ML Vial IVP PRN (11:24)
[2023-11-25] MEDS: FLU VACC QS2023(65UP)/MF59C/PF 60 MCG/0.5 ML SYRINGE IM ONE (07:40)
[2023-11-25 08:25] LABS: Hematocrit 22.6 % (36.0-47.0); Hemoglobin 7.1 g/dL (12.0-16.0); Manual Diff?? YES; Mean Corpuscular HGB CONC 31.4 g/dL (32.0-36.0); Mean Corpuscular Hemoglobin 28.4 pg (27.0-31.0); Mean Corpuscular Volume 90.4 fl (78.0-98.0); Mean Platelet Volume 9.3 fL (7.4-10.4); Platelet Count 625 10x3/uL (130-400); RBC Distribution Width 14.5 % (11.5-14.5); White Blood Cell (WBC) Count 9.6 10x3/uL (4.8-10.8)
[2023-11-25 08:26] LABS: Delete Auto Diff?? YES
[2023-11-25 08:39] LABS: Anion Gap 14 mmol/L (10-20); BUN (Urea Nitrogen) 10 mg/dL (9.8-20.1); Calc. Creatinine Clearance 67 mL/min (70-130); Calcium 8.9 mg/dL (7.8-10.44); Carbon Dioxide 22 mmol/L (23-31); Chloride 108 mmol/L (98-107); Estimated GFR 70; Glucose 103 mg/dL (83-110); Potassium 3.9 mmol/L (3.5-5.1); Sodium 140 mmol/L (136-145)
[2023-11-25 08:50] LABS: Anisocytosis SLIGHT = 6-15 cells HPF (0-5); Band 4 % (5-11); Burr Cells SLIGHT = 2-5 cells HPF (0-1); CellaVision Operator ID LAB.KW3; Helmet Cells SLIGHT = 2-5 cells HPF (0-1); Large Platelets 2.1 % (0-5); Lymphocytes 16 % (21-51); Macrocytosis SLIGHT = 6-15 cells HPF (0-5); Monocytes 7 % (0-10); Neutrophil 73 % (42-75); Platelet Adequacy Comment Platelets Increased; Polychromasia SLIGHT = 2-3 cells HPF (0-2); Schistocytes SLIGHT = 2-5 cells HPF (0-1); Total Cell Count 96
[2023-11-25 10:57] LABS: Anion Gap 15 mmol/L (10-20); BUN (Urea Nitrogen) 9 mg/dL (9.8-20.1); Calc. Creatinine Clearance 64 mL/min (70-130); Calcium 9.5 mg/dL (7.8-10.44); Carbon Dioxide 20 mmol/L (23-31); Chloride 109 mmol/L (98-107); Estimated GFR 67; Glucose 100 mg/dL (83-110); Sodium 140 mmol/L (136-145)
[2023-11-25 11:06] LABS: Hematocrit 25.7 % (36.0-47.0); Manual Diff?? YES; Mean Corpuscular HGB CONC 31.1 g/dL (32.0-36.0); Mean Corpuscular Hemoglobin 28.9 pg (27.0-31.0); Mean Corpuscular Volume 92.8 fl (78.0-98.0); Mean Platelet Volume 10.5 fL (7.4-10.4); Platelet Count 475 10x3/uL (130-400); RBC Distribution Width 14.6 % (11.5-14.5); Red Blood Cell (RBC) Count 2.77 mill/uL (4.20-5.40); White Blood Cell (WBC) Count 10.4 10x3/uL (4.8-10.8)
[2023-11-25 11:08] LABS: Delete Auto Diff?? YES
[2023-11-25 11:28] LABS: Band 1 % (5-11); Burr Cells SLIGHT = 2-5 cells HPF (0-1); CellaVision Operator ID LAB.KW3; Lymphocytes 13 % (21-51); Monocytes 9 % (0-10); Neutrophil 77 % (42-75); Platelet Adequacy Comment Platelets Normal; Platelet Clumps 9.9 % (0-5); Polychromasia SLIGHT = 2-3 cells HPF (0-2); Total Cell Count 101
[2023-11-25] MEDS: traMADol HCl 50 MG TAB PO SCH (16:18)
[2023-11-26] MEDS: LevoFLOXacin 500 MG TAB PO SCH (05:19)
[2023-11-26] MEDS: metroNIDAZOLE 500 MG TAB PO SCH (10:08)
[2023-11-26] MEDS ORDERED: Cyclobenzaprine 10 MG TAB PO PRN (13:24)
[2023-11-26] MEDS: Diazepam 2 MG TAB PO PRN (14:26)
[2023-11-26] MEDS: Acetaminophen/Codeine 30-300mg Tablet PO SCH (14:30)
[2023-11-26] MEDS: traMADol HCl 50 MG TAB PO SCH (16:52)
[2023-11-26] MEDS: Ferrous Sulfate 325 MG TAB PO SCH (18:11)
[2023-11-26] MEDS: Ascorbic Acid 500 mg Chewable Tablet PO SCH (19:41)
[2023-11-26] MEDS: Senokot S 8.6-50 MG TAB PO SCH (19:41)
[2023-11-26] MEDS: tiZANidine HCl 4 MG TAB PO SCH (19:41)
[2023-11-26] MEDS: Acetaminophen/Codeine 30-300mg Tablet PO PRN (19:46)
[2023-11-27 08:05] VITALS: BP 131/66; TEMP 98.3
[2023-11-27] MEDS ORDERED: Acetaminophen/Codeine 30-300mg Tablet PO SCH (13:00)
== END 2023-11-27 10:19 | disposition home or self-care (01) | DRG 919 ==
LOC: ERS 12:00 → ERHOLD 16:20 → 2NO 20:16 → SJJU 11-23 17:58
PROVIDERS: ADMIT Surgery; ATTEND Surgery
PROC: 0W9J3ZZ Drainage of Pelvic Cavity, Percutaneous Approach (ICD-10-PCS; 2023-11-20)
PROC: 5A09457 Assistance with Respiratory Ventilation, 24-96 Consecutive Hours, Continuous Positive Airway Pressure (ICD-10-PCS; principal; 2023-11-26)
DX: K91.870 Postprocedural hematoma of a digestive system organ or structure following a digestive system procedure (principal); A41.9 Sepsis, unspecified organism; N17.9 Acute kidney failure, unspecified; K56.7 Ileus, unspecified; N39.0 Urinary tract infection, site not specified; I25.10 Atherosclerotic heart disease of native coronary artery without angina pectoris; E78.5 Hyperlipidemia, unspecified; Z93.2 Ileostomy status; Z90.49 Acquired absence of other specified parts of digestive tract; Z98.890 Other specified postprocedural states
CPT/HCPCS: 36415; 36416; 49020; 51702; 74176; 74177; 77012; 80048; 80053; 81001; 83605; 84484; 85025; 85610; 85730; 87040; 87070; 87077; 87186; 87205; 93005; 94760; 96374; 96375; 97139; J0696; J1956; J2060; J2270; J2272; J2405; J2543; J2800; J3490; J7120

== ENCOUNTER 2024-03-04 07:05 | Outpatient (CLI) | payer MEDICARE ==
[2024-03-04] MEDS ORDERED: MD-Gastroview 120 ML BOT ONE (07:39)
== END 2024-03-04 07:06 | disposition home or self-care (01) ==
LOC: RAD 07:05
PROVIDERS: ATTEND Surgery
DX: Z48.815 Encounter for surgical aftercare following surgery on the digestive system (principal); K57.30 Diverticulosis of large intestine without perforation or abscess without bleeding; Z93.2 Ileostomy status
CPT/HCPCS: 74280; Q9963

== ENCOUNTER 2024-03-09 13:00 | Inpatient (IN) | payer MEDICARE ==
[2024-03-10 14:33] VITALS: BMI 27.4
[2024-03-11] MEDS ORDERED: fentaNYL PF 100 MCG/2 ML SYRINGE ONE (09:01)
[2024-03-11] MEDS ORDERED: PROPOFOL 20 ML ONE (09:01)
[2024-03-11] MEDS ORDERED: Lidocaine 1% PF 5 ML VIAL ONE (09:02)
[2024-03-11] MEDS ORDERED: Rocuronium Bromide 10 MG/ML (10ML VIAL) ONE (09:02)
[2024-03-11] MEDS ORDERED: cefOXitin 2 GM VIAL ONE (09:36)
[2024-03-11] MEDS ORDERED: Sodium Chloride 0.9% 100 ML ONE (09:36)
[2024-03-11] MEDS ORDERED: Dexamethasone 20 MG/5 ML VIAL ONE (10:08)
[2024-03-11] MEDS ORDERED: Ondansetron PF 4 MG/2 ML Vial ONE (11:10)
[2024-03-11] MEDS ORDERED: SUGAMMADEX SODIUM 200 MG/2 ML VIAL ONE (11:10)
[2024-03-11] MEDS ORDERED: Ipratropium/Albuterol 3 ML NEB NEB PRN (11:24)
[2024-03-11] MEDS ORDERED: Promethazine HCl 25 MG/ML VIAL IM PRN ×3 (11:24→11:33)
[2024-03-11] MEDS ORDERED: Ondansetron PF 4 MG/2 ML Vial IVP PRN (11:24)
[2024-03-11] MEDS ORDERED: hydrALAZINE 20 MG/ML VIAL SLOW IVP PRN (11:24)
[2024-03-11] MEDS ORDERED: diphenhydrAMINE 50 MG/ML VIAL IVP PRN (11:33)
[2024-03-11] MEDS ORDERED: Ondansetron HCl/PF 4 MG/2 ML Vial IVP PRN (11:33)
[2024-03-11] MEDS ORDERED: Naloxone HCl 0.4 mg/ml Vial IV PRN (11:33)
[2024-03-11] MEDS ORDERED: FENTANYL 500 MCG/10 ML VIAL 2,000 MCG in Sodium Chloride 0.9% 60 ML IV PRN (11:33)
[2024-03-11] MEDS ORDERED: diphenhydrAMINE 50 MG/ML VIAL IM PRN (11:33)
[2024-03-11] MEDS ORDERED: Fentanyl 250 MCG/5 ML VIAL ONE (11:36)
[2024-03-11] MEDS ORDERED: Communication Order-Pharmacy FS SCH (11:45)
[2024-03-11] MEDS: Sodium Chloride 0.9% 1,000 ML IV SCH (13:46)
[2024-03-11] MEDS: cefOXitin 2 GM in Sodium Chloride 0.9% 100 ML IVPB SCH (17:37)
[2024-03-11] MEDS: Acetaminophen 325 MG TAB PO PRN (21:34)
[2024-03-11] MEDS: Enoxaparin 40 MG (0.4 mL) SYRINGE SC SCH (21:34)
[2024-03-11] MEDS: Famotidine/PF 20 mg/2ml Vial SLOW IVP SCH (21:34)
[2024-03-11] MEDS: Famotidine 20 MG TAB PO SCH (21:43)
[2024-03-12 07:34] LABS: #Basophils Less than 0.03 10x3/uL (0.0-0.2); #Eosinphils Less than 0.03 10x3/uL (0.0-0.7); %Basophils 0.1 % (0.0-1.0); %Lymphocytes 20.6 % (21.0-51.0); Hematocrit 26.5 % (36.0-47.0); Hemoglobin 8.6 g/dL (12.0-16.0); Mean Corpuscular HGB CONC 32.5 g/dL (32.0-36.0); Mean Corpuscular Hemoglobin 30.4 pg (27.0-31.0); Mean Corpuscular Volume 93.6 fL (78.0-98.0); Mean Platelet Volume 9.2 fL (7.4-10.4); Platelet Count 207 10x3/uL (130-400); RBC Distribution Width 13.4 % (11.5-14.5); Red Blood Cell (RBC) Count 2.83 mill/uL (4.20-5.40)
[2024-03-12 08:12] LABS: Anion Gap 12 mmol/L (10-20); BUN (Urea Nitrogen) 14 mg/dL (9.8-20.1); Calc. Creatinine Clearance 61 mL/min (70-130); Calcium 8.4 mg/dL (7.8-10.44); Carbon Dioxide 21 mmol/L (23-31); Chloride 112 mmol/L (98-107); Estimated GFR 65; Glucose 87 mg/dL (83-110); Potassium 3.9 mmol/L (3.5-5.1); Sodium 141 mmol/L (136-145)
[2024-03-12] MEDS: diphenhydrAMINE 25 MG CAP PO PRN (12:29)
[2024-03-13] MEDS ORDERED: HYDROcodone/Acetaminophen 5/325 mg Tablet PO PRN (11:25)
[2024-03-13 11:56] LABS: #Basophils Less than 0.03 10x3/uL (0.0-0.2); #Eosinphils Less than 0.03 10x3/uL (0.0-0.7); %Basophils 0.1 % (0.0-1.0); %Eosinophils 0.2 % (0.0-10.0); %Monocytes 9.4 % (0.0-10.0); %Neutrophils 46.1 % (42.0-75.0); Hematocrit 33.8 % (36.0-47.0); Hemoglobin 10.9 g/dL (12.0-16.0); Mean Corpuscular HGB CONC 32.2 g/dL (32.0-36.0); Mean Corpuscular Hemoglobin 30.2 pg (27.0-31.0); Mean Corpuscular Volume 93.6 fL (78.0-98.0); Mean Platelet Volume 10.4 fL (7.4-10.4); Platelet Count 191 10x3/uL (130-400); RBC Distribution Width 13.6 % (11.5-14.5); Red Blood Cell (RBC) Count 3.61 mill/uL (4.20-5.40)
[2024-03-13] MEDS: Ondansetron PF 4 MG/2 ML Vial IVP PRN (12:41)
[2024-03-13] MEDS: HYDROcodone/Acetaminophen 5/325 mg Tablet PO PRN (12:41)
[2024-03-13] MEDS: Simethicone Chewable 80 MG TAB PO PRN (15:45)
[2024-03-13] MEDS: D5 1/2 NS w/20 mEq KCL 1,000 ML IV SCH (15:45)
[2024-03-13] MEDS: Escitalopram Oxalate 20 mg Tablet PO SCH (15:45)
[2024-03-13] MEDS: Docusate 100 MG CAP PO SCH (20:44)
[2024-03-13] MEDS: Apixaban 5 MG TAB PO SCH (20:44)
[2024-03-13] MEDS: Baclofen 10 MG TAB PO SCH (20:44)
[2024-03-13] MEDS: Nortriptyline 10 MG CAP PO SCH (20:44)
[2024-03-13] MEDS: Donepezil HCl 10 MG TAB PO SCH (20:44)
[2024-03-13] MEDS: Rosuvastatin 20 MG TAB PO SCH (20:45)
[2024-03-14] MEDS: Pantoprazole 40 MG VIAL IVP SCH (08:58)
[2024-03-14] MEDS: busPIRone HCl 10 MG TAB PO SCH ×2 (10:48→21:36)
[2024-03-14] MEDS: Escitalopram Oxalate 20 mg Tablet PO SCH (21:36)
[2024-03-15] MEDS: Pantoprazole DR 40 MG TAB PO SCH (07:55)
[2024-03-15 08:05] VITALS: BP 123/81; TEMP 97.7
== END 2024-03-15 13:24 | disposition home or self-care (01) | DRG 330 ==
LOC: SURG A 03-11 07:01
PROVIDERS: ADMIT Surgery; ATTEND Surgery
PROC: 0DBB0ZZ Excision of Ileum, Open Approach (ICD-10-PCS; principal; 2024-03-11)
DX: Z43.2 Encounter for attention to ileostomy (principal); K56.7 Ileus, unspecified; I25.10 Atherosclerotic heart disease of native coronary artery without angina pectoris; M19.90 Unspecified osteoarthritis, unspecified site; F32.A Depression, unspecified; I10 Essential (primary) hypertension; F17.290 Nicotine dependence, other tobacco product, uncomplicated; E78.5 Hyperlipidemia, unspecified; Z86.73 Personal history of transient ischemic attack (TIA), and cerebral infarction without residual deficits; Z79.01 Long term (current) use of anticoagulants; Z79.899 Other long term (current) drug therapy; Z88.8 Allergy status to other drugs, medicaments and biological substances; Z86.718 Personal history of other venous thrombosis and embolism; Z90.49 Acquired absence of other specified parts of digestive tract
CPT/HCPCS: 36415; 36416; 80048; 85025; 88304; 93970; A4314; A4649; C9113; J0694; J1100; J1650; J2405; J2704; J3010; J3480; J3490; J7050; S0028

== ENCOUNTER 2025-07-05 15:50 | Emergency (ER) | payer OTHER ==
[~2025-07-05 15:50] MED LIST: Iopamidol-370 76% 500 ML MDV (1 ML CHARGE) ONE
[2025-07-05 17:00] LABS: #Basophils 0.03 10x3/uL (0.0-0.2); #Eosinophils 0.04 10x3/uL (0.0-0.7); #Monocytes 0.36 10x3/uL (0.11-0.59); #Neutrophils 2.32 10x3/uL (1.40-6.50); %Basophils 0.5 % (0.0-1.0); %Eosinophils 0.7 % (0.0-10.0); %Lymphocytes 53.5 % (21.0-51.0); %Monocytes 6.1 % (0.0-10.0); %Neutrophils 39.0 % (42.0-75.0); Hematocrit 31.6 % (36.0-47.0); Hemoglobin 10.5 g/dL (12.0-16.0); Mean Corpuscular Hemoglobin 30.8 pg (27.0-31.0); Mean Corpuscular Volume 92.7 fL (78.0-98.0); Platelet Count 257 10x3/uL (130-400); Red Blood Cell (RBC) Count 3.41 mill/uL (4.20-5.40); White Blood Cell (WBC) Count 5.93 10x3/uL (4.8-10.8)
[2025-07-05 19:35] LABS: Lipase 44 U/L (8-78); Magnesium 1.9 mg/dL (1.6-2.6)
[2025-07-05] MEDS ORDERED: Acetaminophen 500 MG TAB ONE (21:31)
[2025-07-05 21:40] LABS: ALT (SGPT) 19 U/L (Less than 34); AST (SGOT) 29 U/L (11-34); Albumin 4.2 g/dL (3.1-4.5); Alkaline Phosphatase 67 U/L (40-110); Anion Gap 14 mmol/L (10-20); BUN (Urea Nitrogen) 15 mg/dL (9.8-20.1); Bilirubin, Total 1.0 mg/dL (0.3-1.2); Calc. Creatinine Clearance 0 mL/min (70-130); Calcium 9.7 mg/dL (7.8-10.44); Carbon Dioxide 25 mmol/L (23-31); Chloride 106 mmol/L (98-107); Globulin 2.9 g/dL (2.4-3.5); Glucose 90 mg/dL (83-110); Potassium 3.2 mmol/L (3.5-5.1); Sodium 142 mmol/L (136-145)
[2025-07-05] MEDS ORDERED: cefTRIAXone (ROCEPHIN) 1 GM VIAL ONE ×2 (23:34→23:45)
== END 2025-07-06 00:10 | disposition home or self-care (01) ==
LOC: ERS 15:50
DX: K62.5 Hemorrhage of anus and rectum (principal); N30.00 Acute cystitis without hematuria
CPT/HCPCS: 74177; 80053; 83605; 83690; 83735; 85025; 96372; 99284; J0696; 36415; 82274; Q9967